=== PATIENT | male | born 1960 | race American Indian/Alaskan Native ===

== ENCOUNTER 2017-08-20 08:41 | Outpatient (CLI) | payer OTHER ==
[2017-08-20] MEDS: PROVENTIL IH ONE (13:23)
--- NOTE | 2017-08-20 20:35 | XRay Report ---
FINAL REPORT PROCEDURE: XR SPINE LUMBOSACRAL 2-3V TECHNIQUE: Lumbar spine radiographs, frontal and lateral views. CPT 33633 HISTORY: BIPOLAR, SCHIZPHRENIA, DEPRESSION, AND PULMONARY DISEASE COMPARISON: No prior studies are available for comparison. FINDINGS: Alignment: Normal . Vertebral body heights/Disk spaces: There are multilevel degenerative disc changes most pronounced at L4-5.. Fracture(s): None . Facets: There is bilateral facet hypertrophy at L3-L4 through L5-S1.. Bone mineralization: There is mild generalized sclerosis of the bony structures which is nonspecific.. IMPRESSION: There are no fractures or malalignments. There are degenerative changes as noted.
== END 2017-08-20 08:42 | disposition home or self-care (01) ==
LOC: XRAY 08:41
PROVIDERS: ATTEND Internal Medicine
DX: Z02.71 Encounter for disability determination (principal); M47.896 Other spondylosis, lumbar region; M51.36 Other intervertebral disc degeneration, lumbar region; J44.9 Chronic obstructive pulmonary disease, unspecified; F31.9 Bipolar disorder, unspecified; F20.9 Schizophrenia, unspecified
CPT/HCPCS: 72100; 94060